=== PATIENT | female | born 1965 | race Caucasian/White ===

== ENCOUNTER → 2016-11-03 | Outpatient (CLI) | payer MEDICAID ==
[2016-11-03 08:33] LABS: Basophils # (A) 0.1 k/uL (0-0.2); Basophils % (A) 1 %; CH 34.1; CHCM 34.6; Eosinophils # (A) 0.4 k/uL (0-0.7); Eosinophils % (A) 6 %; HCT 44.5 % (34.0-46.0); HDW 2.15; HGB 15.3 gm/dL (11.4-16.0); Luc # (Auto) 0.14; Luc % (Auto) 2; Lymphocytes # (A) 2.8 k/uL (1.0-4.8); Lymphocytes % (A) 44 %; MCH 33.9 pg (25.0-35.0); MCHC 34.3 g/dL (31.0-37.0); Monocytes # (A) 0.3 k/uL (0-1.0); Monocytes % (A) 5 %; Neutrophils # (A) 2.7 k/uL (1.3-7.7); Neutrophils % (A) 43 %; RDW 13.4 % (11.5-15.5); WBC 6.4 k/uL (3.8-10.6); WBC (Perox) 6.04
[2016-11-03 08:39] LABS: Appearance,Urine Clear (Clear); Bilirubin,Urine Negative (Negative); Glucose,Urine (UA) Negative (Negative); Ketones,Urine Negative (Negative); Leukocyte Esterase,Urine Trace (Negative); Mucus,Urine Rare /hpf; Nitrite,Urine Negative (Negative); Particle Count 4684; Protein,Urine Negative (Negative); RBC,Urine 1 /hpf (0-5); Specific Gravity,Urine 1.015 (1.001-1.035); Squamous Epithelial Cell,Urine 3 /hpf (0-4); UA Billing (MACRO vs. MICRO) MICRO; Urobilinogen,Urine <2.0 mg/dL (<2.0); WBC,Urine 2 /hpf (0-5)
[2016-11-03 08:44] LABS: Partial Thromboplastin Time 23.5 sec (22.0-30.0); Prothrombin Time 10.5 sec (9.0-12.0)
[2016-11-03 10:16] LABS: ALT 33 U/L (9-52); AST 28 U/L (14-36); Alkaline Phosphatase 65 U/L (38-126); Anion Gap 11 mmol/L; Blood Urea Nitrogen 19 mg/dL (7-17); Calcium 9.7 mg/dL (8.4-10.2); Carbon Dioxide 30 mmol/L (22-30); Chloride 100 mmol/L (98-107); Cholesterol 173 mg/dL (<200); Creatine Kinase 147 U/L (30-135); Glucose 84 mg/dL (74-99); HDL Cholesterol 74 mg/dL (40-60); Iron 119 ug/dL (37-170); Non-African American GFR(MDRD) >60 (>60 ml/min/1.73 sqM); Potassium 3.9 mmol/L (3.5-5.1); Sodium 141 mmol/L (137-145); Total Bilirubin 0.8 mg/dL (0.2-1.3); Triglycerides 64 mg/dL (<150)
[2016-11-03 10:25] LABS: % Iron Saturation 56.1 % (20-50); Total Iron Binding Capacity 212 ug/dL (265-497)
--- NOTE | 2016-11-03 15:56 | US ---
EXAMINATION TYPE: US thyroid st tissue head/neck DATE OF EXAM: 11/03/2016 COMPARISON: US 2009 CLINICAL HISTORY: 51-year-old female E04.1 THYROID NODULE. No thyroid meds; other medications are Serena zide, Nexium, Calcium and Vitamin C supplements. TECHNIQUE: Multiple sonographic images of the thyroid gland are obtained. FINDINGS: GLAND SIZE: Right Lobe: 5.6 x 2.0 x 2.0 cm Overall Parenchyma: heterogenous Left Lobe: 5.8 x 2.2 x 1.6 cm Overall Parenchyma: heterogeneous Isthmus Thickness: 0.3 cm NODULES RIGHT: # of nodules measured on right: largest of multiple colloid cysts. 1. 1.5 X 1.0 x 0.9 cm circumscribed cyst with some internal echogenic foci and ringdown artifact. Prior US reported 1.6cm right cystic nodule. LEFT: # of nodules measured on left: Multiple colloid cysts. Largest measures 1.3 cm. In addition, there is a: 1. 1.3 X 1.0 x 0.7 cm hypoechoic mixed nodule at the mid lateral pole with well-defined margins; pre sent with microcalcifications. This nodule is wider than tall and shows no intranodular vascularity. ISTHMUS: # of nodules measured in the isthmus: 2 colloid cysts measuring 6 mm and 4 years. Bilateral neck scanned, no evidence of lymphadenopathy. IMPRESSION: 1. Thyromegaly with numerous bilateral colloid cysts. 2. Additionally, a 1.3 cm nodule in the lateral mid left lobe appears mixed with possible microcalcif ications. Consider FNA versus follow-up.
--- NOTE | 2016-11-03 16:23 | US ---
EXAMINATION TYPE: US transvaginal DATE OF EXAM: 11/03/2016 COMPARISON: NONE CLINICAL HISTORY: N93.9 ABN UTERINE BLEEDING. TECHNIQUE: Transabdominal pelvic ultrasound scanning performed, endovaginal scanning performed for b joy evaluation of the uterus and ovaries EXAM MEASUREMENTS: Uterus: 7.5 x 4 x 5.1 cm. Right Ovary: cm Left Ovary: cm 1. Uterus: Anteverted There is poor definition of the endometrium. Some cystic foci are present at the level of the endometrium measuring approximately 2 x 3 mm and 4 x 5 mm. The uterus appears somew hat bulky. Posterior fundus shows isoechoic focus measuring 1.6 x 1.1 x 0.7 cm with contour abnormali ty suggestive of fibroids. 2. Endometrium: Poorly defined, suggestion of abnormal thickening. Endometrial stripe thickness appr oximately 15 mm to 18 mm. 3. Right Ovary: 2.3 x 1.5 x 2.1 cm with associated echogenic foci possibly calcifications. 4. Left Ovary: 2.3 x 1.4 x 1.2 cm. 5. Bilateral Adnexa: Unremarkable 6. Posterior cul-de-sac: No significant free fluid IMPRESSION: There is likely fibroid uterus. Poor definition with some findings suggestive of thickeni ng of the endometrium, consider endometrial biopsy
[2016-11-03 22:06] LABS: Hemoglobin A1C 5.3 % (4.2-6.1)
--- NOTE | 2016-11-05 07:05 | MM ---
Reason for exam: screening (asymptomatic). Last mammogram was performed 1 year and 1 month ago. History: Family history of premenopausal breast cancer in brother at age 30 and premenopausal breast cancer in maternal aunt. Reductions of both breasts, 2000. Taking hormonal contraceptives for 6 years beginning at age 39. Physical Findings: A clinical breast exam by your physician is recommended on an annual basis and results should be correlated with mammographic findings. MG 3D Screening Mammo W/Cad Bilateral CC and MLO view(s) were taken. Prior study comparison: October 02, 2015, bilateral MG 3d screening mammo w/cad. June 26, 2014, bilateral MG screening mammo w CAD. May 18, 2013, bilateral digital screening mammo w/CAD. The breast tissue is heterogeneously dense. This may lower the sensitivity of mammography. Bilateral mammoplasty changes. No significant changes when compared with prior studies. ASSESSMENT: Negative, BI-RAD 1 RECOMMENDATION: Routine screening mammogram of both breasts in 1 year.
== END | disposition home or self-care (01) ==
LOC: RADUSWWP 07:09
PROVIDERS: ATTEND Internal Medicine
DX: Z12.31 Encounter for screening mammogram for malignant neoplasm of breast (principal); N93.9 Abnormal uterine and vaginal bleeding, unspecified; E04.2 Nontoxic multinodular goiter
CPT/HCPCS: 84439; 80061; 80053; 82728; 83036; 82550; 83540; 83550; 84443; 85025; 85610; 85730; 81001; 77063; 76536; 76830; G0202

== ENCOUNTER 2016-12-17 06:59 | Day surgery (SDC) | payer MEDICAID ==
[2016-12-16 08:20] VITALS: BMI 21.4
[~2016-12-17 06:59] MED LIST: LACTATED RINGERS 1,000 ML IV SCH
[2016-12-17 07:18] VITALS: RESP 16; TEMP 97.8
[2016-12-17] MEDS ORDERED: LACTATED RINGERS 1,000 ML IV ONE (07:20)
[2016-12-17] MEDS ORDERED: LIDOCAINE 1% INJ 10MG/ML (20 ML MDV) ONE (07:28)
[2016-12-17] MEDS ORDERED: PROPOFOL 10 MG/ML 20 ML VIAL IV ONE (07:28)
--- NOTE | 2016-12-17 08:00 | P.PCN ---
Date of Procedure: 12/17/16 Preoperative Diagnosis: Postoperative Diagnosis: Procedure(s) Performed: BRIEF HISTORY: Patient is a 51-year-old pleasant 8 female, scheduled for an elective colonoscopy as a part of screening for colorectal neoplasia. PROCEDURE PERFORMED: Colonoscopy with snare polypectomy. PREOPERATIVE DIAGNOSIS: Screening for colon cancer. IV sedation per Anesthesia. PROCEDURE: After informed consent was obtained, the patient, was brought into the endoscopy unit. IV sedation was administered by Anesthesia under continuous monitoring. Digital rectal examination was normal. Initially the Olympus CF- 160 flexible video colonoscope was then inserted in the rectum, gradually advanced into the cecum without any difficulty. Careful examination was performed as the scope was gradually being withdrawn. Ileocecal valve and the appendiceal orifice were visualized and appeared normal. Prep was excellent. Mucosa of the cecum, ascending colon, transverse colon, descending colon, sigmoid colon, and rectum appeared normal. Retroflexion was performed in the rectum and no lesions were seen. The patient tolerated the procedure well. IMPRESSION: 5-6 mm flat cecal polyp status post polypectomy. Rest of the colon appeared normal. RECOMMENDATIONS: Findings of this examination were discussed with the patient as well as her family. She was advised to follow with the biopsy results. If the biopsy shows a tubular adenoma she can have a repeat colonoscopy in 5 years. Implants: Indications for Procedure: Operative Findings: Description of Procedure:
[2016-12-17 08:17] VITALS: BP 115/72; PULSE 72
== END 2016-12-17 08:44 | disposition home or self-care (01) ==
LOC: ORWHC2ENDO 06:59
PROVIDERS: ATTEND Internal Medicine Gastroenterology
DX: Z12.11 Encounter for screening for malignant neoplasm of colon (principal); K63.5 Polyp of colon; K21.9 Gastro-esophageal reflux disease without esophagitis; Z79.899 Other long term (current) drug therapy
CPT/HCPCS: 88305; 45385; J2001; J2704

== ENCOUNTER → 2018-01-14 | Outpatient (CLI) | payer MEDICAID ==
--- NOTE | 2018-01-14 14:20 | MM ---
Reason for exam: screening (asymptomatic). Last mammogram was performed 1 year and 2 months ago. History: Patient is postmenopausal. Family history of premenopausal breast cancer in brother at age 30 and premenopausal breast cancer in maternal aunt. Reductions of both breasts, 2000. Taking hormonal contraceptives for 6 years beginning at age 39. Physical Findings: A clinical breast exam by your physician is recommended on an annual basis and results should be correlated with mammographic findings. MG 3D Screening Mammo W/Cad Bilateral CC and MLO view(s) were taken. Prior study comparison: November 03, 2016, bilateral MG 3d screening mammo w/cad. October 02, 2015, bilateral MG 3d screening mammo w/cad. The breast tissue is heterogeneously dense. This may lower the sensitivity of mammography. There is no discrete abnormality. ASSESSMENT: Negative, BI-RAD 1 RECOMMENDATION: Routine screening mammogram of both breasts in 1 year.
== END | disposition home or self-care (01) ==
LOC: RADMAMWWP 11:22
PROVIDERS: ATTEND Obstetrics & Gynecology
DX: Z12.31 Encounter for screening mammogram for malignant neoplasm of breast (principal); Z80.3 Family history of malignant neoplasm of breast
CPT/HCPCS: 77063; 77067

== ENCOUNTER → 2018-07-20 | Outpatient (CLI) | payer MEDICAID ==
[2018-07-20 16:51] LABS: Basophils # (A) 0.1 k/uL (0-0.2); Basophils % (A) 1 %; Eosinophils # (A) 0.6 k/uL (0-0.7); Eosinophils % (A) 9 %; HCT 44.7 % (34.0-46.0); HGB 14.7 gm/dL (11.4-16.0); Lymphocytes # (A) 3.2 k/uL (1.0-4.8); Lymphocytes % (A) 45 %; MCH 32.6 pg (25.0-35.0); MCHC 32.9 g/dL (31.0-37.0); MCV 99.2 fL (80.0-100.0); Mean Platelet Volume 7.2; Monocytes # (A) 0.4 k/uL (0-1.0); Monocytes % (A) 5 %; Neutrophils # (A) 2.6 k/uL (1.3-7.7); Neutrophils % (A) 38 %; Platelet Count 260 k/uL (150-450); RDW 12.8 % (11.5-15.5)
[2018-07-21 00:49] LABS: Iron Saturation 31.9 (12.00-45.00)
[2018-07-21 00:57] LABS: Vitamin D 25 Hydroxy 22.9 ng/mL (30.0-100.0)
[2018-07-21 01:13] LABS: T4, Free (Free Thyroxine) 1.3 ng/dL (0.80-1.80)
[2018-07-21 01:31] LABS: Albumin/Globulin Ratio 2.94 (1.60-3.17); Anion Gap 12.3 mmol/L (4.00-12.00); Calcium 9.6 mg/dL (8.7-10.3); Carbon Dioxide 29.7 mmol/L (21.6-31.8); Globulin 1.7 g/dL (1.6-3.3); Potassium 3.7 mmol/L (3.5-5.5); Total Bilirubin 0.5 mg/dL (0.2-1.2); Total Protein 6.7 g/dL (6.2-8.2)
[2018-07-21 04:30] LABS: Hemoglobin A1C 5.3 % (4.0-6.0)
== END ==
LOC: LABWHC1 16:27
PROVIDERS: ATTEND Internal Medicine
DX: J30.9 Allergic rhinitis, unspecified (principal); E78.5 Hyperlipidemia, unspecified; K21.9 Gastro-esophageal reflux disease without esophagitis; E04.1 Nontoxic single thyroid nodule; M85.80 Other specified disorders of bone density and structure, unspecified site
CPT/HCPCS: 36415; 80053; 82306; 82550; 82728; 83036; 83540; 83550; 84439; 84443; 85025

== ENCOUNTER → 2018-08-10 | Outpatient (CLI) | payer MEDICAID ==
--- NOTE | 2018-08-10 16:50 | US ---
EXAMINATION TYPE: US thyroid st tissue head/neck DATE OF EXAM: 08/10/2018 COMPARISON: US CLINICAL HISTORY: E04.01 Thyroid nodule. GLAND SIZE: Right Lobe: 5.7 x 2.2 x 1.5 cm Overall Parenchyma: heterogenous Left Lobe: 5.6 x 2.0 x 1.9 cm Overall Parenchyma: heterogeneous Isthmus Thickness: 0.3 cm NODULES RIGHT: # of nodules measured on right: 1 largest of multiple 1. 1.6 X 1.1 x 0.8 cm hypoechoic mixed nodule at the lower pole with present with microcalcificatio ns. This nodule is wider than tall and shows no intranodular vascularity. Prior size: 1.5 x 1.0 x 0.9 cm LEFT: # of nodules measured on left: 2 largest of multiple 1. 1.3 X 1.0 x 0.8 cm hypoechoic mixed nodule at the mid pole present with microcalcifications. T his nodule is wider than tall and shows no intranodular vascularity. Prior size: 1.3 x 0.9 x 0.7 cm 2. 1.4 X 1.1 x 0.6 cm hypoechoic mixed nodule at the mid lateral pole with well-defined margins. T his nodule is wider than tall and shows no intranodular vascularity. Prior size: 1.3 x 1.0 x 0.7 cm ISTHMUS: # of nodules measured in the isthmus: 2 largest 1. 0.8 X 0.6 x 0.5 cm hypoechoic mixed nodule at the mid isthmus with well-defined margins; present with microcalcifications. This nodule is wider than tall and shows no intranodular vascularity. Prior size: 0.6 x 0.5 x 0.2 cm. 2. 0.7 X 0.6 x 0.3 cm hypoechoic mixed nodule at the mid isthmus with well-defined margins; present with microcalcifications. This nodule is wider than tall and shows no intranodular vascularity. Prior size: 0.4 x 0.4 x 0.2 cm Bilateral neck scanned: no evidence of lymphadenopathy. IMPRESSION: Multinodular goiter. There is some vascularity as well as calcifications.
== END | disposition home or self-care (01) ==
LOC: RADUSWWP 12:18
PROVIDERS: ATTEND Internal Medicine
DX: E04.2 Nontoxic multinodular goiter (principal); R93.89 Abnormal findings on diagnostic imaging of other specified body structures
CPT/HCPCS: 76536

== ENCOUNTER → 2019-01-13 | Outpatient (CLI) | payer MEDICAID ==
[2019-01-13 13:45] LABS: Appearance,Urine Clear (Clear); Bilirubin,Urine Negative (Negative); Blood,Urine Negative (Negative); Color,Urine Light Yellow; Glucose,Urine (UA) Negative (Negative); Ketones,Urine Negative (Negative); Leukocyte Esterase,Urine Negative (Negative); Nitrite,Urine Negative (Negative); PH, Urine 6.5 (5.0-8.0); Protein,Urine Negative (Negative); Specific Gravity,Urine 1.011 (1.001-1.035); Urobilinogen,Urine <2.0 mg/dL (<2.0)
== END | disposition home or self-care (01) ==
LOC: LABWHC1 11:50
PROVIDERS: ATTEND Nurse Practitioner Family
DX: R30.0 Dysuria (principal); R35.0 Frequency of micturition
CPT/HCPCS: 81003; 87086

== ENCOUNTER → 2019-03-23 | Outpatient (CLI) | payer MEDICAID ==
--- NOTE | 2019-03-23 14:41 | US ---
EXAMINATION TYPE: US venous doppler duplex LE LT DATE OF EXAM: 03/23/2019 2:30 PM COMPARISON: NONE CLINICAL HISTORY: M79.669 PAIN IN LT LOWER LEG,. SIDE PERFORMED: Left TECHNIQUE: The lower extremity deep venous system is examined utilizing real time linear array sonog emory with graded compression, doppler sonography and color-flow sonography. VESSELS IMAGED: External Iliac Vein (EIV) Common Femoral Vein Deep Femoral Vein Greater Saphenous Vein * Femoral Vein Popliteal Vein Small Saphenous Vein * Proximal Calf Veins (* superficial vessels) Left Leg: Negative for DVT Fluid collection left pop fossa, probable treviño's cyst. Grayscale, color doppler, spectral doppler imaging performed of the deep veins of the left lower extr emity. There is normal flow, compressibility, vascular waveforms. IMPRESSION: No ultrasound evidence for acute DVT in the left lower extremity. Small popliteal cyst p resent towards end of study measures 3.5 cm long axis.
== END | disposition home or self-care (01) ==
LOC: RADUSWWP 14:01
PROVIDERS: ATTEND Internal Medicine Cardiovascular Disease
DX: M71.22 Synovial cyst of popliteal space [Baker], left knee (principal)

== ENCOUNTER → 2019-05-04 | Outpatient (CLI) | payer MEDICAID ==
--- NOTE | 2019-05-05 11:19 | MM ---
Reason for exam: screening (asymptomatic). Last mammogram was performed 1 year and 4 months ago. History: Patient is postmenopausal. Family history of premenopausal breast cancer in brother at age 30 and premenopausal breast cancer in maternal aunt. Reductions of both breasts, 2000. Took hormonal contraceptives for 6 years beginning at age 39. Physical Findings: A clinical breast exam by your physician is recommended on an annual basis and results should be correlated with mammographic findings. MG 3D Screening Mammo W/Cad Bilateral CC and MLO view(s) were taken. Prior study comparison: January 14, 2018, bilateral MG 3d screening mammo w/cad. November 03, 2016, bilateral MG 3d screening mammo w/cad. The breast tissue is heterogeneously dense. This may lower the sensitivity of mammography. No suspicious abnormality. No significant changes when compared with prior studies. ASSESSMENT: Negative, BI-RAD 1 RECOMMENDATION: Routine screening mammogram of both breasts in 1 year.
== END | disposition home or self-care (01) ==
LOC: RADMAMWWP 14:09
PROVIDERS: ATTEND Obstetrics & Gynecology
DX: Z12.31 Encounter for screening mammogram for malignant neoplasm of breast (principal); Z80.3 Family history of malignant neoplasm of breast
CPT/HCPCS: 77063; 77067

== ENCOUNTER → 2020-01-05 | Outpatient (CLI) | payer MEDICAID ==
[2020-01-05 11:09] LABS: Basophils # (A) 0.1 k/uL (0-0.2); Basophils % (A) 1 %; Eosinophils # (A) 0.4 k/uL (0-0.7); Eosinophils % (A) 5 %; HCT 48.3 % (34.0-46.0); HGB 15.7 gm/dL (11.4-16.0); Lymphocytes # (A) 3.1 k/uL (1.0-4.8); Lymphocytes % (A) 35 %; MCH 32.5 pg (25.0-35.0); MCHC 32.5 g/dL (31.0-37.0); MCV 100.2 fL (80.0-100.0); Mean Platelet Volume 8.9; Monocytes # (A) 0.5 k/uL (0-1.0); Monocytes % (A) 5 %; Neutrophils # (A) 4.6 k/uL (1.3-7.7); Neutrophils % (A) 52 %; Platelet Count 230 k/uL (150-450); RBC 4.82 m/uL (3.80-5.40); RDW 12.5 % (11.5-15.5); WBC 8.8 k/uL (3.8-10.6)
[2020-01-05 15:58] LABS: Albumin 5.2 g/dL (3.80-4.90); Albumin/Globulin Ratio 2.6 (1.60-3.17); Anion Gap 9.2 mmol/L (4.00-12.00); BUN/Creat Ratio 21.43 Ratio (12.00-20.00); Calcium 10.7 mg/dL (8.7-10.3); Carbon Dioxide 30.8 mmol/L (21.6-31.8); Chol/HDL Ratio 2.64; LDL Cholesterol,Calculated 105.4 mg/dL (0.0-131.0); Non-African American GFR(CKD) 97.5 (60.0-200.0); Potassium 4.3 mmol/L (3.5-5.5); Total Bilirubin 0.9 mg/dL (0.2-1.2); Total Protein 7.2 g/dL (6.2-8.2); VLDL Calculation 19.6 mg/dL (5.00-40.00)
== END | disposition home or self-care (01) ==
LOC: LABWHC1 09:59
PROVIDERS: ATTEND Internal Medicine
DX: K21.0 Gastro-esophageal reflux disease with esophagitis (principal); E04.1 Nontoxic single thyroid nodule; E78.2 Mixed hyperlipidemia
CPT/HCPCS: 36415; 80053; 80061; 84443; 85025

== ENCOUNTER → 2020-03-16 | Day surgery (SDC) | payer MEDICAID ==
[2020-03-14 10:56] VITALS: BMI 22.4
[~2020-03-16] MED LIST changes: +LIDOCAINE 1% (10MG/ML) FOR IV START INTRADERMA ONE; +LIDOCAINE 1% INJ 10MG/ML (20 ML MDV) ONE; +ONDANSETRON 4 MG/2 ML VIAL IVP ONE; +ONDANSETRON 4 MG/2 ML VIAL ONE; +PROPOFOL 10 MG/ML 20 ML VIAL IV ONE
[2020-03-16 06:32] VITALS: RESP 16; TEMP 97.4
--- NOTE | 2020-03-16 07:30 | P.PCN ---
Date of Procedure: 03/16/20 Procedure(s) Performed: Brief history: Patient is a pleasant 54-year-old white female scheduled for an elective upper endoscopy as well as colonoscopy as a part of evaluation of long-standing history of GERD and prior history of colon polyps. Her last colonoscopy was 5 years ago. Procedure performed: Esophagogastroduodenoscopy Colonoscopy Preoperative diagnosis: GERD Prior history of colon polyps Anesthesia: MAC Procedure: After informed consent was obtained from the patient was brought into the e ndoscopy unit and IV sedation was administered by anesthesia under continuous monitoring. Initially upper endoscopy was done. The Olympus GF 160 video endoscope was inserted inserted into the mouth and esophagus intubated without any difficulty and was gradually advanced into the stomach and duodenum and carefully examined. The bulb and second part of the duodenum appeared normal. The scope was then withdrawn into the stomach adequately insufflated with air and upon careful examination the antrum and body, cardia and fundus appeared normal. The scope was then withdrawn into the esophagus. The GE junction was located at 40 cm to the incisors. It appeared regular with no erythema erosions or ulcerations. Rest of the esophagus appeared normal. Patient tolerated the procedure well. At this time the patient continued to remain sedation. Initial digital rectal examination was normal. Olympus CF 160 video colonoscope was then inserted into the rectum and gradually advanced to the cecum without any difficulty. Careful examination was performed as the scope was gradually being withdrawn. The prep was excellent. The cecum, ascending colon, transverse colon, descending colon, sigmoid colon and rectum appeared normal. Retroflexion was performed in the rectum and no lesions were noted. Patient tolerated the procedure well. Impression: 1. Upper endoscopy revealed normal-appearing esophagus with no evidence of esophagitis or Mckeon's esophagus 2. Colonoscopy was essentially within normal limits with no evidence of colitis or colorectal neoplasia Recommendations: Findings of this examination were discussed with the patient as well as her family. She was advised to have a repeat screening colonoscopy in 5 years. She will continue with Nexium daily and follow antireflux measures
[2020-03-16 07:58] VITALS: BP 111/76; PULSE 70
== END ==
LOC: ORWHC2ENDO 06:07
PROVIDERS: ATTEND Internal Medicine Gastroenterology
DX: Z12.11 Encounter for screening for malignant neoplasm of colon (principal); Z86.010 Personal history of colon polyps; K21.9 Gastro-esophageal reflux disease without esophagitis; Z79.899 Other long term (current) drug therapy
CPT/HCPCS: 43235; G0105; J2405; J2001; J2704